=== PATIENT | male | born 1955 | race Caucasian/White ===

== ENCOUNTER 2019-04-04 17:48 | Inpatient (IN) | payer MEDICARE, OTHER ==
[~2019-04-04] VITALS: Ht 182.9 cm; Wt 113.4 kg
[2019-04-04] MEDS ORDERED: LORAZEPAM 0.5 MG TABLET PO PRN (23:00)
[2019-04-04] MEDS ORDERED: MAG HYDROX/AL HYDROX/SIMETH 30 ML UDC PO PRN (23:00)
[2019-04-04] MEDS ORDERED: ACETAMINOPHEN 325 MG TABLET PO PRN (23:00)
[2019-04-04] MEDS ORDERED: BLOOD SUGAR DIAGNOSTIC 1 EACH STRIP IN ONE (23:00)
[2019-04-04] MEDS ORDERED: MAGNESIUM HYDROXIDE 30 ML UDC PO PRN (23:00)
[2019-04-05] MEDS ORDERED: AMLO10TA7 PO (01:27)
[2019-04-05] MEDS ORDERED: TIOT18CA3 INH (01:27)
[2019-04-05] MEDS ORDERED: ATOR40TA PO (01:27)
[2019-04-05] MEDS ORDERED: ALBU8.5H8 INH (01:27)
[2019-04-05] MEDS ORDERED: QUET200T PO (01:27)
[2019-04-05] MEDS ORDERED: BENZ2AMP3 IJ (01:27)
[2019-04-05] MEDS ORDERED: CLON1TAB12 PO (01:27)
[2019-04-05] MEDS ORDERED: METO25TA4 PO (01:27)
[2019-04-05] MEDS ORDERED: OLAN10TA3 PO (01:27)
[2019-04-05] MEDS ORDERED: BUDE10.2 INH (01:27)
[2019-04-05] MEDS ORDERED: MOME17SP NS (01:27)
[2019-04-05] MEDS ORDERED: CHOL200026 PO (01:27)
[2019-04-05] MEDS ORDERED: IBUP-1957 PO (01:27)
[2019-04-05] MEDS ORDERED: MOME13HF2 INH (01:27)
[2019-04-05] MEDS ORDERED: CEPH500C2 PO (01:27)
[2019-04-05] MEDS ORDERED: DOCU100C36 PO (01:27)
[2019-04-05] MEDS ORDERED: CLOZ100T32 PO (01:27)
[2019-04-05 02:55] VITALS: BP 153/75
[2019-04-05] MEDS ORDERED: VANCOMYCIN 1 GM in IV NS 0.9% 250 ML IV SCH (03:00)
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
[2019-04-05] MEDS ORDERED: AMLODIPINE BESYLATE 10 MG TABLET PO PRN (04:30)
[2019-04-05] MEDS ORDERED: ALBUTEROL SULFATE INH 18 GM HFA.AER.AD NEB PRN (04:30)
--- NOTE | 2019-04-05 04:35 | NUR ---
PT PRESCRIBED IV VANCOMYCIN, ON-CALL DR AT [facility], AWAITING DRS CALL TO REPORT ADRIANA DOES NOT ADMINISTER IV/FURTHER INSTRUCTION.
--- NOTE | 2019-04-05 06:11 | NUR ---
NO RESPONSE FROM [facility] ON-CALL DR ABOUT THE PRESCRIBED IV VANCOMYCIN. WILL ENDORSE TO ON-COMING AM SHIFT TO FOLLOW UP WITH DR LUU.
--- NOTE | 2019-04-05 06:39 | NUR ---
Spoke to HAMMAD Browning that we don't infuse Vancomycin here and she gave an order to d/c the order.
[2019-04-05 08:00] VITALS: BP 154/75
[2019-04-05 08:16] LABS: BASOPHILS # (AUTO) 0.1 /CMM (0.0-0.2); BASOPHILS % (AUTO) 1.1 % (0.0-2.0); EOSINOPHILS % (AUTO) 0.1 % (0.0-6.0); HEMATOCRIT 36 % (39-51); HEMOGLOBIN 11.5 g/dL (13.5-17.5); LYMPHOCYTES # (AUTO) 1.5 /CMM (0.8-4.8); LYMPHOCYTES % (AUTO) 22.4 % (20.0-44.0); MEAN CORPUSCULAR HGB CONC 32 g/dl (31.0-36.0); MEAN CORPUSCULAR VOLUME 83 fL (80-96); MONOCYTES # (AUTO) 0.5 /CMM (0.1-1.30); MONOCYTES % (AUTO) 7.6 % (2.0-12.0); NEUTROPHILS # (AUTO) 4.7 /CMM (1.8-8.9); NEUTROPHILS % (AUTO) 68.8 % (43.0-81.0); PLATELET COUNT (AUTO) 349 /CMM (150-450); WHITE BLOOD COUNT (AUTO) 6.9 K/uL (4.3-11.0)
[2019-04-05] MEDS ORDERED: MOMETASONE FUROATE NASAL SUSP 17 GM BOTTLE PRN (08:30)
[2019-04-05 08:34] LABS: ALBUMIN 2.7 g/dL (3.4-5.0); BILIRUBIN,TOTAL 0.5 mg/dL (0.2-1.0); CALCIUM, SERUM 8.7 mg/dL (8.5-10.1); CREATININE 1.1 mg/dL (0.6-1.3); PHOSPHORUS 3.6 mg/dL (2.5-4.9); TOTAL PROTEIN, SERUM 6.2 g/dL (6.4-8.2)
[2019-04-05 08:49] LABS: THYROID STIMULATING HORMONE 3.579 uIU/mL (0.358-3.74)
[2019-04-05] MEDS ORDERED: CEPHALEXIN MONOHYDRATE 500 MG CAPSULE PO SCH (09:00)
--- NOTE | 2019-04-05 09:10 | NUR ---
ENDORSED PT. TO BE CORMIER.
[2019-04-05] MEDS: IBUPROFEN 400 MG TABLET PO SCH ×2 (09:28→17:30)
[2019-04-05] MEDS: METOPROLOL SUCCINATE 25 MG TAB.SR.24H PO SCH (09:28)
[2019-04-05] MEDS: FLUTICASONE/VILANTEROL 1 EACH BLST.W.DEV IH SCH (09:35)
--- NOTE | 2019-04-05 09:37 | NUR ---
FAMILY CONTACT: TALYA contacted pts sister Kenyetta [phone] to discuss discharge planning and to receive collateral information. Sister informed SW that she is pts caregiver and wishes for pt to return to her home [address] [place] [address] where pt has been living for the past 10 years. Sister stated that pt was recently discharged from a psychiatric facility in [place] where he was at for 2 months. Sister also stated that pt was psychiatrically stable until 2 months ago when his Clozaril which he had been taking for 10 years was stopped due to him having a bowel obstruction that required medical attention. Sister stated that once pt was taken off Clozaril he declined rapidly and he had to be psychiatrically hospitalized. Sister informed SW that pt was on 300mg OAM and 400mg QPM of Clozaril a day and she wishes for him to get back on it so he can stabilize. Sister stated that pt responds really well to that medication and was stable while on it. Sister also stated that pt receives psychiatrist monthly psychiatric treatment from Dr. Piedad Espinoza [address] [facility] [address] P:[phone]. SW informed sister that she would inform psychiatrist Dr. Pizano about pts medication change.
--- NOTE | 2019-04-05 10:09 | NUR ---
OUTSIDE PSYCHIATRIST CONTACT: SW contacted Dr. Piedad Espinoza [address] [facility] [address] P:[phone] and spoke with Lizbeth and provided her with information regarding pts current 5150 hold and psychiatric hospitalization. Lizbeth stated that she will have pts medication nurse contact SW to coordinate follow up.
--- NOTE | 2019-04-05 10:45 | NUR ---
RN NOTE- DR DUQUE CAME TO SEE PT AND DC VANCOMYCIN AND STARTED KEFLEX 500 MG PO BID X 5 DAYS.
--- NOTE | 2019-04-05 10:52 | NUR ---
WOUND CARE CONSULT: PT PRESENTS CONTINENT AND INDEPENDENT WITH BED MOBILITY AND SOME REDNESS WITH EDEMA TO LEFT LOWER LEG, PRESENT ON ADMISSION. DEFER TO MD FOR CELLULITIS. RECOMMENDATIONS MADE FOR SKIN PROTECTION. DISCUSSED WITH NURSING STAFF. WILL SEE PRN.
--- NOTE | 2019-04-05 11:30 | NUR ---
RECEIVED PT. BACK UNDER MY CARE.
--- NOTE | 2019-04-05 11:43 | NUR ---
INITIAL DISCHARGE PLAN: Per Sister Kenyetta [phone] she wishes pt to return to her home [address], [place] [address]. TALYA will help form a safe and proper discharge in coordination with .
[2019-04-05] MEDS: CEPHALEXIN MONOHYDRATE 250 MG CAPSULE PO SCH ×2 (12:15→21:14)
[2019-04-05] MEDS ORDERED: CLOZAPINE 25 MG TABLET PO SCH (13:00)
[2019-04-05] MEDS ORDERED: ALBUTEROL FS 2.5 MG/0.5 ML VIAL.NEB NEB PRN (13:30)
[2019-04-05 16:00] VITALS: BP 147/77
--- NOTE | 2019-04-05 16:25 | NUR ---
GROUP NOTE: SW assessed pts ability to participate in group therapy on this present day discussing "reality testing." Pt unable to participate due to paranoia and psychosis, and actively hallucinating.
[2019-04-05] MEDS: ATORVASTATIN 40 MG TABLET PO SCH (17:31)
[2019-04-05] MEDS: CLOZAPINE 25 MG TABLET PO SCH (19:34)
[2019-04-05 20:30] VITALS: BP 166/77
[2019-04-05] MEDS: DOCUSATE SODIUM 100 MG CAPSULE PO SCH (21:15)
--- NOTE | 2019-04-05 22:00 | NUR ---
BP decreased to 127/57 at 2200 from 166/77 at 1999 after taking PRN Ativan
--- NOTE | 2019-04-06 02:06 | NUR ---
Refused to take Colace
[2019-04-06 08:00] VITALS: BP 138/76
[2019-04-06] MEDS ORDERED: CLOZAPINE 25 MG TABLET PO SCH (09:00)
[2019-04-06] MEDS: CEPHALEXIN MONOHYDRATE 250 MG CAPSULE PO SCH ×2 (10:24→17:28)
[2019-04-06] MEDS: IBUPROFEN 400 MG TABLET PO SCH ×2 (10:25→17:28)
[2019-04-06] MEDS: METOPROLOL SUCCINATE 25 MG TAB.SR.24H PO SCH (10:26)
[2019-04-06] MEDS: CLOZAPINE 25 MG TABLET PO SCH ×2 (10:27→17:28)
[2019-04-06] MEDS: FLUTICASONE/VILANTEROL 1 EACH BLST.W.DEV IH SCH (10:48)
[2019-04-06 16:00] VITALS: BP 133/76
--- NOTE | 2019-04-06 16:16 | NUR ---
Group Note: SW encouraged the pt to participate in group therapy on 04/06/19 at 2pm discussing social supports. Pt was unable to participate due to paranoia and psychosis, and actively hallucinating. Pt was deemed inappropriate for group at this time.
[2019-04-06] MEDS: ATORVASTATIN 40 MG TABLET PO SCH (17:28)
[2019-04-06 20:09] VITALS: BP 141/75
[2019-04-06] MEDS: DOCUSATE SODIUM 100 MG CAPSULE PO SCH (21:14)
[2019-04-07 08:00] VITALS: BP 152/95
[2019-04-07] MEDS: FLUTICASONE/VILANTEROL 1 EACH BLST.W.DEV IH SCH (08:20)
[2019-04-07] MEDS: IBUPROFEN 400 MG TABLET PO SCH ×2 (08:20→17:18)
[2019-04-07] MEDS: METOPROLOL SUCCINATE 25 MG TAB.SR.24H PO SCH (08:20)
[2019-04-07] MEDS: CEPHALEXIN MONOHYDRATE 250 MG CAPSULE PO SCH ×2 (08:20→17:18)
[2019-04-07] MEDS: CLOZAPINE 25 MG TABLET PO SCH ×2 (08:21→17:19)
--- NOTE | 2019-04-07 09:23 | NUR ---
PC HEARING NOTIFICATION: SW contacted pts sister Kenyetta [phone] to inform her of pts PC Hearing on this present day and also to confirm she will be able to provide transportation back home once pt is stable. Sister stated that she will coordinate transportation with SW once the time comes. TALYA also informed her that MD is slowly increasing pts Clozaril dosage and that pt is responding well to it.
[2019-04-07 16:00] VITALS: BP 134/79
[2019-04-07] MEDS: ATORVASTATIN 40 MG TABLET PO SCH (17:18)
[2019-04-07 20:34] VITALS: BP 112/69
[2019-04-07 20:40] VITALS: BP 139/76
[2019-04-07] MEDS: DOCUSATE SODIUM 100 MG CAPSULE PO SCH (20:56)
[2019-04-07] MEDS: TEMAZEPAM 7.5 MG CAPSULE PO PRN (20:57)
[2019-04-07 22:18] VITALS: BP 139/76
[2019-04-08 08:00] VITALS: BP 153/82
[2019-04-08] MEDS: FLUTICASONE/VILANTEROL 1 EACH BLST.W.DEV IH SCH (08:26)
[2019-04-08] MEDS: CLOZAPINE 25 MG TABLET PO SCH ×2 (08:26→17:04)
[2019-04-08] MEDS: CEPHALEXIN MONOHYDRATE 250 MG CAPSULE PO SCH ×2 (08:27→17:04)
[2019-04-08] MEDS: METOPROLOL SUCCINATE 25 MG TAB.SR.24H PO SCH (08:27)
[2019-04-08] MEDS: IBUPROFEN 400 MG TABLET PO SCH ×2 (08:27→17:04)
[2019-04-08 16:00] VITALS: BP 160/96
[2019-04-08] MEDS: ATORVASTATIN 40 MG TABLET PO SCH (17:04)
[2019-04-08 20:00] VITALS: BP 141/75
[2019-04-08 20:14] VITALS: BP 141/75
[2019-04-08] MEDS: TEMAZEPAM 7.5 MG CAPSULE PO PRN (21:21)
[2019-04-08] MEDS: DOCUSATE SODIUM 100 MG CAPSULE PO SCH (21:21)
[2019-04-09] MEDS: FLUTICASONE/VILANTEROL 1 EACH BLST.W.DEV IH SCH (07:59)
[2019-04-09 08:00] VITALS: BP 158/89
[2019-04-09] MEDS: CLOZAPINE 25 MG TABLET PO SCH ×2 (08:00→17:27)
[2019-04-09] MEDS: CEPHALEXIN MONOHYDRATE 250 MG CAPSULE PO SCH ×2 (08:00→17:27)
[2019-04-09] MEDS: IBUPROFEN 400 MG TABLET PO SCH ×2 (08:01→17:28)
[2019-04-09] MEDS: METOPROLOL SUCCINATE 25 MG TAB.SR.24H PO SCH (08:02)
[2019-04-09 16:00] VITALS: BP 158/90
[2019-04-09] MEDS: ATORVASTATIN 40 MG TABLET PO SCH (17:27)
[2019-04-09 20:33] VITALS: BP 145/76
[2019-04-09] MEDS: DOCUSATE SODIUM 100 MG CAPSULE PO SCH (21:18)
[2019-04-10 08:00] VITALS: BP 147/92
[2019-04-10] MEDS: CEPHALEXIN MONOHYDRATE 250 MG CAPSULE PO SCH ×2 (08:37→17:42)
[2019-04-10] MEDS: METOPROLOL SUCCINATE 25 MG TAB.SR.24H PO SCH (08:37)
[2019-04-10] MEDS: IBUPROFEN 400 MG TABLET PO SCH ×2 (08:38→17:42)
[2019-04-10] MEDS: CLOZAPINE 25 MG TABLET PO SCH ×2 (08:39→21:36)
[2019-04-10] MEDS: FLUTICASONE/VILANTEROL 1 EACH BLST.W.DEV IH SCH (08:40)
--- NOTE | 2019-04-10 15:45 | NUR ---
GROUP NOTE: SW encouraged pt to attend group on this present day discussing "discharge planning." Pt refused to attend stating his leg was stiff and he couldn't move. SW provided intervention and discussed pts hallucinations. Pt stated he is feeling better and not hearing voices.
[2019-04-10 15:51] VITALS: BP 151/94
[2019-04-10] MEDS: ATORVASTATIN 40 MG TABLET PO SCH (18:44)
[2019-04-10 20:14] VITALS: BP 140/80
[2019-04-10] MEDS: DOCUSATE SODIUM 100 MG CAPSULE PO SCH (21:36)
[2019-04-11 08:00] VITALS: BP 141/77
[2019-04-11] MEDS: FLUTICASONE/VILANTEROL 1 EACH BLST.W.DEV IH SCH (08:22)
[2019-04-11] MEDS: CLOZAPINE 25 MG TABLET PO SCH ×2 (08:22→21:11)
[2019-04-11] MEDS: METOPROLOL SUCCINATE 25 MG TAB.SR.24H PO SCH (08:23)
[2019-04-11] MEDS: IBUPROFEN 400 MG TABLET PO SCH ×2 (08:23→16:17)
--- NOTE | 2019-04-11 11:24 | NUR ---
FAMILY CONTACT: SW contacted pts sister Kenyetta [phone] to discuss pts anticipated discharge for 04/13/19. Sister stated that she feels pt is still not stable for discharge as she stated pt asked her to take him to a mental institution so they can "due away with him." Sister requested pts Clozaril be increased. SW stated that she would discuss her concern with pts MD. Sister agreed.
[2019-04-11 16:00] VITALS: BP 139/88
[2019-04-11] MEDS: ATORVASTATIN 40 MG TABLET PO SCH (17:15)
[2019-04-11 20:26] VITALS: BP 126/65
[2019-04-11] MEDS: DOCUSATE SODIUM 100 MG CAPSULE PO SCH (21:11)
[2019-04-12 08:00] VITALS: BP 145/68
[2019-04-12] MEDS: CLOZAPINE 25 MG TABLET PO SCH (08:34)
[2019-04-12] MEDS: IBUPROFEN 400 MG TABLET PO SCH ×2 (08:34→17:21)
[2019-04-12] MEDS: METOPROLOL SUCCINATE 25 MG TAB.SR.24H PO SCH (08:34)
[2019-04-12] MEDS: FLUTICASONE/VILANTEROL 1 EACH BLST.W.DEV IH SCH (08:36)
--- NOTE | 2019-04-12 12:07 | NUR ---
FAMILY CONTACT: SW received a call from pts sister Kenyetta [phone] stating pt refused to speak to her on this present day and also stated that pt is not ready to be discharged. SW stated that she would discuss her concerns with pts MD. Sister agreed.
[2019-04-12 12:23] LABS: BASOPHILS # (AUTO) 0.1 /CMM (0.0-0.2); BASOPHILS % (AUTO) 1.1 % (0.0-2.0); EOSINOPHILS % (AUTO) 0.1 % (0.0-6.0); HEMATOCRIT 38 % (39-51); HEMOGLOBIN 12.7 g/dL (13.5-17.5); LYMPHOCYTES # (AUTO) 1.4 /CMM (0.8-4.8); LYMPHOCYTES % (AUTO) 23.2 % (20.0-44.0); MEAN CORPUSCULAR HGB CONC 33 g/dl (31.0-36.0); MEAN CORPUSCULAR VOLUME 83 fL (80-96); MONOCYTES # (AUTO) 0.4 /CMM (0.1-1.30); MONOCYTES % (AUTO) 7.5 % (2.0-12.0); NEUTROPHILS # (AUTO) 4.1 /CMM (1.8-8.9); NEUTROPHILS % (AUTO) 68.1 % (43.0-81.0); PLATELET COUNT (AUTO) 259 /CMM (150-450); RED BLOOD CELL COUNT(AUTO) 4.64 MIL/uL (4.5-6.0)
[2019-04-12 16:00] VITALS: BP 143/88
[2019-04-12] MEDS: ATORVASTATIN 40 MG TABLET PO SCH (17:21)
[2019-04-12] MEDS: CLOZAPINE 100 MG TABLET PO SCH (18:21)
[2019-04-12 20:17] VITALS: BP 148/76
[2019-04-12] MEDS: DOCUSATE SODIUM 100 MG CAPSULE PO SCH (21:41)
[2019-04-13] MEDS: CLOZAPINE 100 MG TABLET PO SCH ×2 (06:41→17:06)
--- NOTE | 2019-04-13 06:45 | NUR ---
training and development officer closing notes pt awake and alert calmed and interact appropriately at this time. slept well and stable andrew the night. all due meds given and all needs met. kept him warm and comfortable at all times. will endorse to am nurse for continuity of care.
[2019-04-13 08:00] VITALS: BP 153/85
[2019-04-13] MEDS: FLUTICASONE/VILANTEROL 1 EACH BLST.W.DEV IH SCH (08:26)
[2019-04-13] MEDS: METOPROLOL SUCCINATE 25 MG TAB.SR.24H PO SCH (08:27)
[2019-04-13] MEDS: IBUPROFEN 400 MG TABLET PO SCH ×2 (08:33→17:06)
[2019-04-13] MEDS: FLUOXETINE HCL 20 MG CAPSULE PO SCH (08:33)
--- NOTE | 2019-04-13 08:45 | NUR ---
INDIVIDUAL MEETING: SW met with pt to discuss his discharge plan, per pt he states he does not want to return to his sisters house and requested SNF placement. SW will coordinate discharge to a SNF and begin referring pt.
--- NOTE | 2019-04-13 09:16 | NUR ---
SNF REFERRAL: SW faxed SNF referral to Flo wedding coordinator at [facility] ([facility]) [address] [facility] [place] [address] P:[phone] F: [phone] and [facility] ([facility]) located at [address] [place] [id number] F: [phone] for review.
--- NOTE | 2019-04-13 10:18 | NUR ---
SNF: SW received a call from Flo log operations coordinator at [facility] ([facility]) [address] [place] [address] P:[phone] stating pt has been accepted to the facility.
--- NOTE | 2019-04-13 12:52 | NUR ---
COLLATERAL CONTACT: TALYA received a call from Bessy, child care centre manager at [address] [facility] [address] P:[phone] requesting discharge information. TALYA informed her that there is no current discharge date and also informed her that pt is refusing to return to his sisters house and has requested SNF placement. TALYA will contact Bessy once discharge has been ordered. Bessy agreed with discharge plan.
[2019-04-13 16:00] VITALS: BP 138/81
[2019-04-13] MEDS: ATORVASTATIN 40 MG TABLET PO SCH (17:06)
[2019-04-13 20:36] VITALS: BP 153/86
[2019-04-13] MEDS: DOCUSATE SODIUM 100 MG CAPSULE PO SCH (21:13)
[2019-04-13 21:25] VITALS: BP 136/64
--- NOTE | 2019-04-13 23:00 | NUR ---
GPS RN NOTE, RECEIVED PATIENT AWAKE AND IN BED, NO S/S OR COMPLAINTS OF PAIN AT THIS TIME. PATIENT IS DISPLAYING NO S/S OF APPARENT DISTRESS AT THIS TIME. PATIENT BREATHING IS UNLABORED WITH EQUAL RISE AND FALL OF THE CHEST. PATIENT IS ALERT AND ORIENTED X 2-3 ON ROOM AIR WITH A SPO2 99%. PATIENT COMPLAINT WITH MEDICATION, CALM, COOPERATIVE, DISORGANIZED AT TIMES, PASSIVE, AND NEEDS REORIENTATION. PATIENT DENIES SUICIDE AND HOMICIDAL IDEATIONS AT THIS TIME. PATIENT ASSISTED WITH TURNING AND REPOSITIONING Q2HR AND PRN FOR COMFORT AND CIRCULATION. PATIENT HAS NO NEEDS AT THIS TIME. PATIENT EDUCATED ON THE USE OF THE CALL CANTU. PATIENT BED SIDE RAILS UP X2 FOR SAFETY, BED IS LOCKED AND LOW WILL CONTINUE TO MONITOR AND MAINTAIN SAFETY.
[2019-04-14] MEDS: CLOZAPINE 100 MG TABLET PO SCH ×2 (05:47→17:46)
[2019-04-14 08:00] VITALS: BP 154/89
[2019-04-14] MEDS: FLUOXETINE HCL 20 MG CAPSULE PO SCH (08:04)
[2019-04-14] MEDS: IBUPROFEN 400 MG TABLET PO SCH ×2 (08:04→17:46)
[2019-04-14] MEDS: METOPROLOL SUCCINATE 25 MG TAB.SR.24H PO SCH (08:04)
[2019-04-14] MEDS: FLUTICASONE/VILANTEROL 1 EACH BLST.W.DEV IH SCH (08:31)
[2019-04-14 16:00] VITALS: BP 153/80
[2019-04-14] MEDS: ATORVASTATIN 40 MG TABLET PO SCH (17:46)
[2019-04-14] MEDS: DOCUSATE SODIUM 100 MG CAPSULE PO SCH (21:01)
[2019-04-14 21:03] VITALS: BP 140/65
[2019-04-15] MEDS: CLOZAPINE 100 MG TABLET PO SCH (05:00)
[2019-04-15 08:00] VITALS: BP 155/79
[2019-04-15] MEDS: METOPROLOL SUCCINATE 25 MG TAB.SR.24H PO SCH (08:44)
[2019-04-15] MEDS: FLUOXETINE HCL 20 MG CAPSULE PO SCH (08:44)
[2019-04-15] MEDS: FLUTICASONE/VILANTEROL 1 EACH BLST.W.DEV IH SCH (08:45)
[2019-04-15] MEDS: IBUPROFEN 400 MG TABLET PO SCH ×2 (08:47→16:18)
[2019-04-15 16:00] VITALS: BP 149/87
[2019-04-15] MEDS: ATORVASTATIN 40 MG TABLET PO SCH (16:18)
[2019-04-15] MEDS: CLOZAPINE 25 MG TABLET PO SCH (16:19)
[2019-04-15 20:12] VITALS: BP 120/58
[2019-04-15] MEDS: DOCUSATE SODIUM 100 MG CAPSULE PO SCH (21:20)
[2019-04-16] MEDS: CLOZAPINE 25 MG TABLET PO SCH ×3 (03:29→17:12)
[2019-04-16 08:00] VITALS: BP 115/70
[2019-04-16] MEDS: FLUTICASONE/VILANTEROL 1 EACH BLST.W.DEV IH SCH (09:09)
[2019-04-16] MEDS: FLUOXETINE HCL 20 MG CAPSULE PO SCH (09:10)
[2019-04-16] MEDS: IBUPROFEN 400 MG TABLET PO SCH ×3 (09:10→17:13)
[2019-04-16] MEDS: METOPROLOL SUCCINATE 25 MG TAB.SR.24H PO SCH (09:10)
[2019-04-16 16:00] VITALS: BP 144/76
[2019-04-16] MEDS: ATORVASTATIN 40 MG TABLET PO SCH (18:05)
[2019-04-16 20:05] VITALS: BP 130/58
[2019-04-16] MEDS: DOCUSATE SODIUM 100 MG CAPSULE PO SCH (21:29)
[2019-04-17] MEDS: CLOZAPINE 25 MG TABLET PO SCH ×2 (03:03→15:55)
--- NOTE | 2019-04-17 06:25 | NUR ---
RN CLOSING NOTES PATIENT IN BED ALERT AND ORIENTED X 2-3. VERBALLY RESPONSIVE AND ABLE TO FOLLOW DIRECTIONS. BREATHING REGULAR AND UNLABORED ON ROOM AIR. SLEPT FOR ABOUT 7-9HRS LAST NIGHT. NO EPISODE OF AGITATION OR AGGRESSIVE BEHAVIOR NOTED THE WHOLE SHIFT. REMAINED CALM AND COOPERATIVE. COMPLIANT WITH HIS MEDICATIONS. BED LOW AND LOCKED ON FLAT POSITION. WILL ENDORSE TO MORNING SHIFT FOR MARY.
[2019-04-17 08:00] VITALS: BP 123/61
[2019-04-17] MEDS: FLUOXETINE HCL 20 MG CAPSULE PO SCH (09:42)
[2019-04-17] MEDS: METOPROLOL SUCCINATE 25 MG TAB.SR.24H PO SCH (09:42)
[2019-04-17] MEDS: FLUTICASONE/VILANTEROL 1 EACH BLST.W.DEV IH SCH (09:43)
--- NOTE | 2019-04-17 15:30 | NUR ---
Group Note: SW went to patient's room to invite patient to attend today's support group at 1:00pm regarding holiday sensory activity being held in the activities room. Patient presented laying on a chair next to their bed stating, "I have a swollen leg". SW encouraged the pt. to attend and just sit in. However, the pt. refused.
[2019-04-17 16:00] VITALS: BP 134/85
[2019-04-17] MEDS: ATORVASTATIN 40 MG TABLET PO SCH (17:41)
[2019-04-17] MEDS: IBUPROFEN 400 MG TABLET PO SCH (17:41)
[2019-04-17 20:25] VITALS: BP 126/58
[2019-04-17] MEDS: DOCUSATE SODIUM 100 MG CAPSULE PO SCH (21:30)
[2019-04-17] MEDS: TEMAZEPAM 7.5 MG CAPSULE PO PRN (21:31)
[2019-04-18 08:00] VITALS: BP_SYST 104; BP_SYST 154; BP_DIAS 56; BP_DIAS 75
[2019-04-18] MEDS: FLUTICASONE/VILANTEROL 1 EACH BLST.W.DEV IH SCH (09:31)
[2019-04-18] MEDS: METOPROLOL SUCCINATE 25 MG TAB.SR.24H PO SCH (09:32)
[2019-04-18] MEDS: FLUOXETINE HCL 20 MG CAPSULE PO SCH (09:33)
[2019-04-18] MEDS: IBUPROFEN 400 MG TABLET PO SCH ×2 (09:33→17:00)
--- NOTE | 2019-04-18 14:08 | NUR ---
FAMILY CONTACT: SW contacted pts sister Kenyetta [phone] and left a voicemail informing her pt will be discharged tomorrow 04/19/19 to [facility].
[2019-04-18] MEDS: CLOZAPINE 25 MG TABLET PO SCH (15:00)
--- NOTE | 2019-04-18 15:06 | NUR ---
GROUP NOTE: SW encouraged pt to participate in group therapy discussing "discharge planning." Pt was present and stated that he did not know what arrangements were going to be made for him, SW stated that he will be discharged tomorrow and pt stated that he agreed with going to a SNF. Pt also stated that he did not want to return to his sisters house. Pt was cooperative and maintained good eye contact, pt was also calm with euthymic mood.
[2019-04-18 16:37] VITALS: BP 153/92
[2019-04-18] MEDS: ATORVASTATIN 40 MG TABLET PO SCH (18:16)
[2019-04-18 20:32] VITALS: BP 120/63
[2019-04-18 20:36] LABS: BASOPHILS # (AUTO) 0.1 /CMM (0.0-0.2); BASOPHILS % (AUTO) 1.1 % (0.0-2.0); EOSINOPHILS % (AUTO) 0.1 % (0.0-6.0); HEMATOCRIT 36 % (39-51); HEMOGLOBIN 11.8 g/dL (13.5-17.5); LYMPHOCYTES # (AUTO) 2.2 /CMM (0.8-4.8); LYMPHOCYTES % (AUTO) 29.2 % (20.0-44.0); MEAN CORPUSCULAR HGB CONC 33 g/dl (31.0-36.0); MEAN CORPUSCULAR VOLUME 83 fL (80-96); MONOCYTES # (AUTO) 0.6 /CMM (0.1-1.30); MONOCYTES % (AUTO) 7.7 % (2.0-12.0); NEUTROPHILS # (AUTO) 4.7 /CMM (1.8-8.9); NEUTROPHILS % (AUTO) 61.9 % (43.0-81.0); PLATELET COUNT (AUTO) 209 /CMM (150-450); RED BLOOD CELL COUNT(AUTO) 4.33 MIL/uL (4.5-6.0); WHITE BLOOD COUNT (AUTO) 7.5 K/uL (4.3-11.0)
[2019-04-18] MEDS: DOCUSATE SODIUM 100 MG CAPSULE PO SCH (21:04)
[2019-04-19] MEDS: CLOZAPINE 25 MG TABLET PO SCH (03:05)
[2019-04-19 08:00] VITALS: BP 149/72
[2019-04-19 08:39] VITALS: BP 149/72
[2019-04-19] MEDS: FLUOXETINE HCL 20 MG CAPSULE PO SCH (08:39)
[2019-04-19] MEDS: METOPROLOL SUCCINATE 25 MG TAB.SR.24H PO SCH (08:39)
[2019-04-19] MEDS: IBUPROFEN 400 MG TABLET PO SCH (08:40)
[2019-04-19] MEDS: FLUTICASONE/VILANTEROL 1 EACH BLST.W.DEV IH SCH (08:50)
--- NOTE | 2019-04-19 09:32 | NUR ---
DISCHARGE NOTE: Pt will be discharged at 1:00pm via [facility] to [facility] ([facility]) [address] [place] [address]. [place] [address] P: [phone]. Pts sister Kenyetta [phone] has been notified via voicemail. Pts mood is euthymic with congruent affect. Pt denied visual/auditory hallucinations and denied suicidal/homicidal ideation. Pt will be under the care of Psychiatrist: Dr. Nessa Pizano [address] [place] [address] and Manager Plan: Dr. Toledo Address: [address] [place] [id number] . The multidisciplinary exit care form was done, printed, signed, and given to the patient.
--- NOTE | 2019-04-19 13:00 | NUR ---
GPS RN NOTES 63Y/O MALE DISCHARGED TO [facility] IN STABLE CONDITION. COMPLIANT WITH MEDICATIONS, COOPERATIVE WITH TREATMENT PLANS. PATIENT DENIES SI/HI AND INSTRUCTED TO GO TO THE CLOSEST ER IF DEVELOPING SI/HI. BEHAVIOR IMPROVED, PSYCHIATRIC TX PLANS MET, MEDICAL TX PLANS DEFERRED FOR CONTINUAL MONITORING. EDUCATED PT ABOUT AFTER CARE PLAN AND COPY PROVIDED. RETURNED PERSONAL BELONGINGS TO PATIENT. MEDICATIONS RECONCILED WITH DR. LUU AND ALANNA HERRERA NP. REPORT GIVEN TO CAROL CAM AT [facility] FOR CONTINUITY OF CARE. PATIENT SIGNED ALL DISCHARGE PAPERWORK. SKIN ASSESSED, NO SKIN BREAKDOWN. SKIN ASSESSMENT PICTURES TAKEN AND DOCUMENTED IN CHART. PT LEFT THE UNIT AT 1250 VIA AMBULANCE.
== END 2019-04-19 12:50 | DRG 885 ==
LOC: GPS 22:01
PROVIDERS: ADMIT Psychiatry & Neurology Psychiatry; ATTEND Nurse Practitioner Acute Care
DX: F20.0 Paranoid schizophrenia (principal); L03.116 Cellulitis of left lower limb; F29 Unspecified psychosis not due to a substance or known physiological condition; I10 Essential (primary) hypertension; J44.9 Chronic obstructive pulmonary disease, unspecified; Z73.6 Limitation of activities due to disability; E66.9 Obesity, unspecified; Z68.33 Body mass index [BMI] 33.0-33.9, adult; Z91.5 Personal history of self-harm; R13.10 Dysphagia, unspecified; F32.9 Major depressive disorder, single episode, unspecified
CPT/HCPCS: 36415; 80053-TC; 80061-TC; 82962-TC; 83735-TC; 84100-TC; 84443-TC; 85025-TC; 87081-TC; 92611-TC; J3370; J7050

== ENCOUNTER 2019-11-21 18:32 | Inpatient (IN) | payer MEDICARE, OTHER ==
[~2019-11-21] VITALS: Ht 182.9 cm; Wt 99.1 kg
[~2019-11-21 18:32] MED LIST: ALBU8.5H8 INH; AMLO10TA7 PO; ATOR40TA PO; BENZ2AMP3 IJ; BUDE10.2 INH; CEPH500C2 PO; CHOL200026 PO; CLON1TAB12 PO; CLOZ100T32 PO; DOCU100C36 PO; IBUP-1957 PO; METO25TA4 PO; MOME13HF2 INH; MOME17SP NS; OLAN10TA3 PO; QUET200T PO; TIOT18CA3 INH
--- NOTE | 2019-11-21 18:39 | NUR ---
KEYANNA ALVARADO FROM [facility]. SENT FOR MEDICAL AND PSYCH EVAL. PER REPORT, C/O SI W/ NO SPECIFIC PLAN. UPON INITIAL ASSESSMENT, PT DENIES SI. NO C/O PAIN OR ANY DISCOMFORT. STABLE VITALS. AWAITING MD GOODRICH.
--- NOTE | 2019-11-21 18:40 | NUR ---
DR CHAMPION AT BEDSIDE FOR EVAL.
--- NOTE | 2019-11-21 18:52 | NUR ---
SPAR CAP BEVELER AT BEDSIDE FOR BLOOD DRAW.
[2019-11-21 18:57] LABS: BASOPHILS # (AUTO) 0.1 /CMM (0.0-0.2); BASOPHILS % (AUTO) 0.8 % (0.0-2.0); EOSINOPHILS % (AUTO) 0.1 % (0.0-6.0); HEMATOCRIT 40 % (39-51); LYMPHOCYTES # (AUTO) 1.8 /CMM (0.8-4.8); LYMPHOCYTES % (AUTO) 20.5 % (20.0-44.0); MEAN CORPUSCULAR HGB CONC 33 g/dl (31.0-36.0); MEAN CORPUSCULAR VOLUME 87 fL (80-96); MONOCYTES # (AUTO) 0.8 /CMM (0.1-1.30); MONOCYTES % (AUTO) 9.3 % (2.0-12.0); NEUTROPHILS % (AUTO) 69.3 % (43.0-81.0); PLATELET COUNT (AUTO) 167 /CMM (150-450); RED BLOOD CELL COUNT(AUTO) 4.61 MIL/uL (4.5-6.0); WHITE BLOOD COUNT (AUTO) 8.7 K/uL (4.3-11.0)
--- NOTE | 2019-11-21 18:58 | NUR ---
UNABLE TO PROVIDE URINE SAMPLE AT THIS TIME. URINAL GIVEN AT BEDSIDE.
[2019-11-21 19:07] LABS: CARBON DIOXIDE 31 mmol/L (21-32); CHLORIDE 102 mmol/L (98-107); CREATININE 1.4 mg/dL (0.6-1.3); GLUCOSE 112 mg/dL (74-106); POTASSIUM 3.8 mmol/L (3.5-5.1); SODIUM SERUM 138 mmol/L (136-145); UREA NITROGEN, BLOOD 30 mg/dL (7-18)
[2019-11-21 19:12] LABS: ALANINE AMINOTRANSFERASE 26 U/L (12-78); ALBUMIN 3.3 g/dL (3.4-5.0); ALCOHOL, BLOOD < 3 mg/dL (0-0); ALKALINE PHOSPHATASE 63 U/L (46-116); ASPARTATE AMINOTRANSFERASE 17 U/L (15-37); BILIRUBIN,DIRECT 0.1 mg/dL (0.0-0.2); BILIRUBIN,TOTAL 0.3 mg/dL (0.2-1.0); TOTAL PROTEIN, SERUM 6.7 g/dL (6.4-8.2)
[2019-11-21 19:14] LABS: ACETAMINOPHEN < 2 ug/ml (10-30); SALICYLATE < 2.8 mg/dL (2.8-20.0)
--- NOTE | 2019-11-21 19:17 | NUR ---
REPORT TO [facility] FOR MARY.
--- NOTE | 2019-11-21 19:23 | NUR ---
CALLED [employer] DEVELOPER [employer] FOR EVAL, ETA 2030
--- NOTE | 2019-11-21 19:23 | NUR ---
PT AMBULATED TO THE RESTROOM. PROVIDED URINE SAMPLE. URINE SAMPLE SENT TO LAB.
[2019-11-21 19:28] LABS: APPEARANCE,URINE Clear (CLEAR); BILIRUBIN,URINE Negative (NEGATIVE); BLOOD, URINE Small Ery/uL (NEGATIVE); COLOR,URINE Yellow (YELLOW); KETONES,URINE Negative (NEGATIVE); LEUKOCYTE ESTERASE ,URINE Negative (NEGATIVE); NITRITE, URINE Negative (NEGATIVE); PH,URINE 5.5 (5.0-8.0); PROTEIN,URINE Negative (NEGATIVE); UGLUCOSE Negative (NEGATIVE); UROBILINOGEN,URINE 0.2 EU/dL (0.2)
[2019-11-21 19:40] LABS: BACTERIA,URINE None seen /HPF (None Seen); SQUAMOUS EPITHELIAL CELL,UR Few /HPF (None Seen); WBC,URINE 0-2 /HPF (0-3)
--- NOTE | 2019-11-21 19:45 | NUR ---
FROM [facility].
--- NOTE | 2019-11-21 19:46 | NUR ---
MED LIST UPDATED.
[2019-11-21] MEDS ORDERED: IV NS 0.9% 1,000 ML IV ONE (20:00)
--- NOTE | 2019-11-21 20:04 | NUR ---
COVID SWAB SENT TO LAB
--- NOTE | 2019-11-21 20:57 | NUR ---
RESTING COMFORTABLY. VSS.
--- NOTE | 2019-11-21 21:51 | NUR ---
PALCED ON 5150 FOR GD AND DANGER TO SELF.
--- NOTE | 2019-11-21 22:18 | NUR ---
IV removed. Catheter intact and site benign. Pressure and 4x4 applied to site. No bleeding noted.
[2019-11-21] MEDS ORDERED: ALBUTEROL SULFATE INH 18 GM HFA.AER.AD IH PRN (23:00)
[2019-11-21] MEDS ORDERED: AMLODIPINE BESYLATE 10 MG TABLET PO PRN (23:00)
--- NOTE | 2019-11-21 23:09 | NUR ---
REOPORT GIVEN TO [facility] FOR MARY
[2019-11-21] MEDS ORDERED: MAG HYDROX/AL HYDROX/SIMETH 30 ML UDC PO PRN (23:30)
[2019-11-21] MEDS ORDERED: BLOOD SUGAR DIAGNOSTIC 1 EACH STRIP IN ONE (23:30)
[2019-11-21] MEDS ORDERED: MAGNESIUM HYDROXIDE 30 ML UDC PO PRN (23:30)
--- NOTE | 2019-11-21 23:30 | NUR ---
GPS PRESS WRITER NOTE RECEIVED PT FROM ER. PATIENT ARRIVED ON THIS UNIT AT 2325 VIA GURNEY. PATIENT ADMITTED ON A 5150 FOR DTS, GD. PER HOLD PATIENT REPORTS OF NO SI/HI/AVH AT THIS TIME. DENIES PAIN, NO DISTRESS WAS NOTED. PT WAS CALM, COOPERATIVE, BLUNT, FLAT AFFECT, ANXIOUS AND GUARDED PATIENT TALKING TO HIMSELF BUT DENIES AUDITORY, VISUAL HALLUCINATION. DISCUSSED WITH PT REASON FOR HOLD, NO QUESTIONS AT THIS TIME. SKIN ASSESSMENT WAS DONE, VITAL SIGNS STABLE, PATIENT ID BAND ON. DR. LUU AND DR. HERRERA WILL BE ON THE PATIENTS CARE WHILE HIS TIME HERE AT GPS. GUIDE TO PRESCRIPTIONS MEDICATION AND PATIENTS RIGHT HANDBOOK PROVIDED. PATIENT BELONGINGS WERE INVENTORIED AND CHECKED FOR CONTRABAND. PATIENT ORIENTED TO ROOM, FLOOR AND STAFF. PATIENT BED IS LOCKED AND IN LOWEST POSITION, WILL MONITOR Q15 MIN FOR SAFETY AND BEHAVIOR.
[2019-11-22 01:02] VITALS: BP 137/64
[2019-11-22 07:15] LABS: IRON, SERUM 64 ug/dl (50-175); TOTAL IRON BINDING CAPACITY 232 ug/dl (250-450)
[2019-11-22 07:16] LABS: CHOLESTEROL 121 mg/dL (<200); HDL CHOLESTEROL 51 mg/dL (40-60); LDL 65 mg/dL (0-99); TRIGLYCERIDES 55 mg/dL (30-150)
[2019-11-22 08:00] VITALS: BP 138/80
[2019-11-22] MEDS ORDERED: ALBUTEROL FS 2.5 MG/0.5 ML VIAL.NEB IH PRN (08:10)
[2019-11-22] MEDS: DOCUSATE SODIUM 100 MG CAPSULE PO SCH ×2 (08:35→16:41)
--- NOTE | 2019-11-22 08:59 | NUR ---
INDIVIDUAL INTERVENTION: dry yard worker met with patient to provide brief counseling. Pt appeared to be labile and hyperverbal. Pt was unable to state where he is and constantly states that he is "homeless". Pt appeared to be grandiose and stated that "he built the [employer]". This mortgage underwriter actively listened and provided emotional support.
--- NOTE | 2019-11-22 09:55 | NUR ---
Social Work Initial Discharge Note: Patient currently resides at [facility] [id number] [place] [id number]; ([phone]). ornamental bronze worker spoke with Flo ([phone]) and stated that patient is welcomed back upon discharge. This publications writer contacted patient's sister Kenyetta([phone]) but was unavailable and this publications writer left a voicemail. ornamental bronze worker will work with the MD to help coordinate proper discharge plan for patient.
--- NOTE | 2019-11-22 09:56 | NUR ---
Social Work Family Contact: maintenance and repair worker contacted patient's sister Kenyetta ([phone]) to gather collateral but was unavailable. This account underwriter left a voicemail to call back.
--- NOTE | 2019-11-22 10:28 | NUR ---
Social Work Family: This technical report writer spoke with Kenyetta ([phone]) stated that patient does not want to talk to her. Per sister, she stated he had lived with her for 10 years but no longer wants to live with her. She stated that he has been residing at [facility] and would want him to return back.
--- NOTE | 2019-11-22 14:14 | NUR ---
GROUP NOTE: Pt was asleep and not easily aroused by verbal cues.
[2019-11-22] MEDS ORDERED: METO25TA4 PO (15:19)
[2019-11-22] MEDS ORDERED: FLUT1BLS IH (15:19)
[2019-11-22] MEDS ORDERED: ATOR40TA PO (15:19)
[2019-11-22 16:00] VITALS: BP 156/86
--- NOTE | 2019-11-22 17:34 | NUR ---
GPS/RN-NOTES DARLENE RAE MADE AWARE OF NEW MEDICATIONS ADDED AND TO RECONCILE MEDICATIONS. RESPONDED WITH "OK". WILL ENDORSE TO NEXT SHIFT FOR FOLLOW UP AND CONTINUITY OF CARE.
[2019-11-22] MEDS ORDERED: IBUPROFEN 600 MG TABLET PO PRN (21:00)
[2019-11-22] MEDS: CLOZAPINE 100 MG TABLET PO SCH (22:00)
--- NOTE | 2019-11-22 22:19 | NUR ---
GPS RN NOTE: MEDICATION REFUSAL PT. REFUSED SCHEDULED 2200 CLOZARIL 300 MG PO. EXPLAINED RISKS AND BENEFITS. OFFERED 3X AND PT. STILL REFUSED. WILL CONTINUE TO MONITOR FOR SAFETY AND BEHAVIOR
[2019-11-22] MEDS: ACETAMINOPHEN 325 MG TABLET PO PRN (22:23)
--- NOTE | 2019-11-22 22:26 | NUR ---
GPS RN NOTE: PAIN PT. C/O OF GENERALIZED PAIN AND REQUESTED TYLENOL. ADMINISTERED TYLENOL 650 MG PO PRN ORDERED. WILL CONTINUE TO MONITOR FOR SAFETY AND BEHAVIOR
[2019-11-23 08:00] VITALS: BP 140/82
[2019-11-23] MEDS: AMLODIPINE BESYLATE 10 MG TABLET PO SCH (08:44)
[2019-11-23] MEDS: FLUOXETINE HCL 20 MG CAPSULE PO SCH (08:44)
[2019-11-23] MEDS: CLOZAPINE 100 MG TABLET PO SCH ×2 (08:44→20:59)
[2019-11-23] MEDS: DOCUSATE SODIUM 100 MG CAPSULE PO SCH ×2 (08:44→16:29)
--- NOTE | 2019-11-23 14:23 | NUR ---
GROUP NOTE: Group Topic was on how to manage stress. Patient was able to engage in group. Patient was agitated and kept talking about his sister and how his sister is not a good person. Patient shared that he does not have a good relationship with his sister and that he "does not like his sister". Patient is unpredictable. This adjusto writer operator comforted patient and provided emotional support.
[2019-11-23 16:00] VITALS: BP 116/67
[2019-11-23 19:43] LABS: APPEARANCE,URINE CLEAR (CLEAR); BILIRUBIN,URINE NEGATIVE (NEGATIVE); BLOOD, URINE MODERATE Ery/uL (NEGATIVE); COLOR,URINE YELLOW (YELLOW); KETONES,URINE NEGATIVE (NEGATIVE); LEUKOCYTE ESTERASE ,URINE TRACE (NEGATIVE); NITRITE, URINE NEGATIVE (NEGATIVE); PROTEIN,URINE NEGATIVE (NEGATIVE); UGLUCOSE NEGATIVE (NEGATIVE); UROBILINOGEN,URINE 0.2 EU/dL (0.2)
[2019-11-23 19:59] LABS: BACTERIA,URINE RARE /HPF (None Seen); SQUAMOUS EPITHELIAL CELL,UR 0-2 /HPF (None Seen)
[2019-11-23 20:15] LABS: EOSINOPHIL,URINE None Seen
[2019-11-23 20:53] VITALS: BP 125/63
[2019-11-23] MEDS: ACETAMINOPHEN 325 MG TABLET PO PRN (21:05)
[2019-11-24 00:31] LABS: CREATININE, URINE 91.5 MG/DL (30.0-125.0)
[2019-11-24 00:47] LABS: URINE TOTAL PROTEIN 20.7 mg/dL (0-11.9)
[2019-11-24 07:23] LABS: BASOPHILS % (AUTO) 0.5 % (0.0-2.0); EOSINOPHILS % (AUTO) 0.1 % (0.0-6.0); HEMATOCRIT 40 % (39-51); HEMOGLOBIN 13.3 g/dL (13.5-17.5); LYMPHOCYTES # (AUTO) 1.7 /CMM (0.8-4.8); LYMPHOCYTES % (AUTO) 20.3 % (20.0-44.0); MEAN CORPUSCULAR HGB CONC 33 g/dl (31.0-36.0); MEAN CORPUSCULAR VOLUME 85 fL (80-96); MONOCYTES # (AUTO) 0.6 /CMM (0.1-1.30); MONOCYTES % (AUTO) 7.6 % (2.0-12.0); NEUTROPHILS % (AUTO) 71.5 % (43.0-81.0); PLATELET COUNT (AUTO) 165 /CMM (150-450); RED BLOOD CELL COUNT(AUTO) 4.69 MIL/uL (4.5-6.0); WHITE BLOOD COUNT (AUTO) 8.4 K/uL (4.3-11.0)
[2019-11-24 08:00] VITALS: BP 132/58
[2019-11-24 08:07] LABS: ALBUMIN 3.2 g/dL (3.4-5.0); BILIRUBIN,TOTAL 0.5 mg/dL (0.2-1.0); CALCIUM, SERUM 8.8 mg/dL (8.5-10.1); MAGNESIUM 2.1 mg/dL (1.8-2.4); PHOSPHORUS 3.1 mg/dL (2.5-4.9); POTASSIUM 3.7 mmol/L (3.5-5.1); TOTAL PROTEIN, SERUM 6.2 g/dL (6.4-8.2)
[2019-11-24] MEDS: AMLODIPINE BESYLATE 10 MG TABLET PO SCH (08:29)
[2019-11-24] MEDS: DOCUSATE SODIUM 100 MG CAPSULE PO SCH ×2 (08:29→16:22)
[2019-11-24] MEDS: CLOZAPINE 100 MG TABLET PO SCH ×2 (08:29→21:49)
[2019-11-24] MEDS: FLUOXETINE HCL 20 MG CAPSULE PO SCH (08:29)
--- NOTE | 2019-11-24 12:04 | NUR ---
Social Work Note: This manual writer contacted patient's SNF [facility] and spoke with Flo who stated that patient does not have a conservatorship.
--- NOTE | 2019-11-24 15:26 | NUR ---
GROUP NOTE: grey roll worker invited pt to participate in group. Pt appeared to be withdrawn and quiet. He did not want to join and stated that he wants to rest.
[2019-11-24 16:00] VITALS: BP 122/73
[2019-11-24 19:49] VITALS: BP 103/73
[2019-11-24 19:56] VITALS: BP 103/73
--- NOTE | 2019-11-24 20:03 | NUR ---
PRN MILK OF MAGNESIA GIVEN PATIENT VERBALIZED THAT HE HAD SMALL BM NOW & FEELS HE IS CONSTIPATED & REQUESTED TO GET MILK OF MAGNESIA, OFFERED PRUNE JUICE TO THE PATIENT BUT HE REFUSED & ONLY WANTED TO TAKE MILK OF MAGNESIA. PRN MOM 30ML PO GIVEN. WILL MONITOR FOR EFFECTIVENESS.
[2019-11-24] MEDS: LORAZEPAM 0.5 MG TABLET PO PRN (20:25)
--- NOTE | 2019-11-24 20:26 | NUR ---
GPS RN NOTE: ANXIETY PATIENT VERBALIZED TO BE ANXIOUS & RESTLESS, TALKING TO HIMSELF, HYPERVERBAL, PACING IN THE HALLWAY. PRN ATIVAN 0.5 MG 1 TAB PO GIVEN ORDERED. WILL MONITOR CLOSELY FOR ANY CHANGES.
--- NOTE | 2019-11-24 21:15 | NUR ---
REFUSED SKIN ASSESSMENT PATIENT REFUSE SKIN ASSESSMENT X 3, EASILY ANXIOUS, HYPERVERBAL, PARANOID, TALKS TO HIMSELF & REFUSED SKIN ASSESSMENT DESPITE OF RISKS & BENEFITS EXPLANATIONS.
[2019-11-24 21:48] VITALS: BP 134/81
[2019-11-25 08:00] VITALS: BP 149/80
[2019-11-25 08:06] LABS: PTH, INTACT 49 pg/mL (15-65)
[2019-11-25] MEDS: CLOZAPINE 100 MG TABLET PO SCH ×2 (08:48→21:49)
[2019-11-25] MEDS: FLUOXETINE HCL 20 MG CAPSULE PO SCH (08:48)
[2019-11-25] MEDS: DOCUSATE SODIUM 100 MG CAPSULE PO SCH ×2 (08:48→17:28)
[2019-11-25] MEDS: AMLODIPINE BESYLATE 10 MG TABLET PO SCH (08:48)
[2019-11-25 16:00] VITALS: BP 136/72
[2019-11-25] MEDS: LORAZEPAM 0.5 MG TABLET PO PRN (17:50)
--- NOTE | 2019-11-25 17:51 | NUR ---
RN NOTE: ANXIETY PT C/O INCREASING ANXIETY. REQUESTING ATIVAN. ATIVAN 0.5MG PO PRN ADMINISTERED.
[2019-11-25 20:00] VITALS: BP 128/61
[2019-11-25 20:18] LABS: APPEARANCE,URINE CLEAR (CLEAR); BILIRUBIN,URINE NEGATIVE (NEGATIVE); BLOOD, URINE SMALL Ery/uL (NEGATIVE); COLOR,URINE YELLOW (YELLOW); KETONES,URINE NEGATIVE (NEGATIVE); LEUKOCYTE ESTERASE ,URINE NEGATIVE (NEGATIVE); NITRITE, URINE NEGATIVE (NEGATIVE); PH,URINE 6.5 (5.0-8.0); PROTEIN,URINE NEGATIVE (NEGATIVE); UGLUCOSE NEGATIVE (NEGATIVE); UROBILINOGEN,URINE 0.2 EU/dL (0.2)
[2019-11-25 20:28] VITALS: BP 128/61
[2019-11-25] MEDS: ACETAMINOPHEN 325 MG TABLET PO PRN (22:09)
--- NOTE | 2019-11-25 22:09 | NUR ---
GPS RN NOTE: PRN TYLENOL GIVEN PATIENT VERBALIZED C/O NECK PAIN 07/10 & REQUESTED TO GET TYLENOL. PRN TYLENOL 650 MG PO GIVEN ORDERED. WILL CONTINUE TO MONITOR.
[2019-11-26 07:08] LABS: BASOPHILS % (AUTO) 0.8 % (0.0-2.0); EOSINOPHILS % (AUTO) 0.1 % (0.0-6.0); HEMATOCRIT 40 % (39-51); HEMOGLOBIN 13.1 g/dL (13.5-17.5); LYMPHOCYTES # (AUTO) 1.8 /CMM (0.8-4.8); LYMPHOCYTES % (AUTO) 31.4 % (20.0-44.0); MEAN CORPUSCULAR HGB CONC 33 g/dl (31.0-36.0); MEAN CORPUSCULAR VOLUME 85 fL (80-96); MONOCYTES # (AUTO) 0.5 /CMM (0.1-1.30); NEUTROPHILS # (AUTO) 3.5 /CMM (1.8-8.9); NEUTROPHILS % (AUTO) 59.7 % (43.0-81.0); PLATELET COUNT (AUTO) 164 /CMM (150-450); RED BLOOD CELL COUNT(AUTO) 4.66 MIL/uL (4.5-6.0); WHITE BLOOD COUNT (AUTO) 5.8 K/uL (4.3-11.0)
[2019-11-26 08:00] VITALS: BP 111/64
[2019-11-26] MEDS: FLUOXETINE HCL 20 MG CAPSULE PO SCH (09:19)
[2019-11-26] MEDS: DOCUSATE SODIUM 100 MG CAPSULE PO SCH ×2 (09:19→17:18)
[2019-11-26] MEDS: CLOZAPINE 100 MG TABLET PO SCH ×2 (09:20→21:43)
[2019-11-26] MEDS: AMLODIPINE BESYLATE 10 MG TABLET PO SCH (09:20)
[2019-11-26 16:00] VITALS: BP 127/67
[2019-11-26 20:00] VITALS: BP 125/65
[2019-11-26 20:11] VITALS: BP 90/46
[2019-11-27 08:00] VITALS: BP 143/75
[2019-11-27] MEDS: DOCUSATE SODIUM 100 MG CAPSULE PO SCH ×2 (08:15→17:13)
[2019-11-27] MEDS: FLUOXETINE HCL 20 MG CAPSULE PO SCH (08:16)
[2019-11-27] MEDS: CLOZAPINE 100 MG TABLET PO SCH (08:16)
[2019-11-27] MEDS: AMLODIPINE BESYLATE 10 MG TABLET PO SCH (08:16)
[2019-11-27 16:00] VITALS: BP 117/69
[2019-11-27 20:16] VITALS: BP 137/79
[2019-11-27] MEDS: LORAZEPAM 0.5 MG TABLET PO PRN (22:07)
--- NOTE | 2019-11-27 22:08 | NUR ---
GPS RN NOTES: ANXIOUS PT C/O OF FEELING ANXIOUS. PT REQUESTED ATIVAN. OFFERED ATIVAN 0.5MG PO PRN ORDERED. PT AGREED AND TOLERATED MEDICATION WELL. CONTINUE TO MONITOR
[2019-11-28 06:35] LABS: *SPE A/G RATIO 1.1 (0.7-1.7); *SPE ALPHA-1-GLOBULIN 0.2 g/dL (0.0-0.4); *SPE ALPHA-2-GLOBULIN 0.7 g/dL (0.4-1.0); *SPE BETA GLOBULIN 0.9 g/dL (0.7-1.3); *SPE GLOBULIN, TOTAL 2.7 g/dL (2.2-3.9); *SPE M-SPIKE Not Observed g/dL (Not Observed); *SPEGAMMA GLOBULIN 0.9 g/dL (0.4-1.8)
[2019-11-28 08:00] VITALS: BP 119/69
[2019-11-28] MEDS: CLOZAPINE 100 MG TABLET PO SCH ×2 (08:31→21:19)
[2019-11-28] MEDS: DOCUSATE SODIUM 100 MG CAPSULE PO SCH ×2 (08:31→17:22)
[2019-11-28] MEDS: FLUOXETINE HCL 20 MG CAPSULE PO SCH (08:31)
[2019-11-28] MEDS: AMLODIPINE BESYLATE 10 MG TABLET PO SCH (08:32)
[2019-11-28] MEDS: LORAZEPAM 0.5 MG TABLET PO PRN (14:44)
--- NOTE | 2019-11-28 14:49 | NUR ---
just medicated with ativan 0.5 mg po for anxiety.
--- NOTE | 2019-11-28 15:28 | NUR ---
GROUP NOTE: Group Topic: Depression SW provided active listening, supportive counseling, and explored alternate coping skills. Patient presents with disorganized thought process and rambles about different topics. Patient was able to share that he suffers from depression for along time in his life and has attempted suicide several times.
[2019-11-28 15:44] LABS: BASOPHILS % (AUTO) 0.6 % (0.0-2.0); EOSINOPHILS % (AUTO) 0.1 % (0.0-6.0); HEMATOCRIT 43 % (39-51); LYMPHOCYTES % (AUTO) 29.5 % (20.0-44.0); MEAN CORPUSCULAR HGB CONC 33 g/dl (31.0-36.0); MEAN CORPUSCULAR VOLUME 85 fL (80-96); MONOCYTES # (AUTO) 0.6 /CMM (0.1-1.30); MONOCYTES % (AUTO) 8.7 % (2.0-12.0); NEUTROPHILS # (AUTO) 4.1 /CMM (1.8-8.9); NEUTROPHILS % (AUTO) 61.1 % (43.0-81.0); PLATELET COUNT (AUTO) 188 /CMM (150-450); RED BLOOD CELL COUNT(AUTO) 5.01 MIL/uL (4.5-6.0); WHITE BLOOD COUNT (AUTO) 6.7 K/uL (4.3-11.0)
[2019-11-28 16:00] VITALS: BP 146/63
[2019-11-28 19:58] VITALS: BP 128/79
[2019-11-28] MEDS: TEMAZEPAM 7.5 MG CAPSULE PO PRN (21:38)
--- NOTE | 2019-11-28 21:40 | NUR ---
GPS RN NOTE: INSOMNIA PT. C/O UNABLE TO SLEEP. ADMINISTERED RESTORIL 7.5 MG PO PRN ORDERED. WILL CONTINUE TO MONITOR FOR SAFETY AND BEHAVIOR
[2019-11-29 08:00] VITALS: BP 125/66
[2019-11-29] MEDS: DOCUSATE SODIUM 100 MG CAPSULE PO SCH ×2 (08:28→17:00)
[2019-11-29] MEDS: FLUOXETINE HCL 20 MG CAPSULE PO SCH (08:29)
[2019-11-29] MEDS: CLOZAPINE 100 MG TABLET PO SCH ×2 (08:29→21:11)
[2019-11-29] MEDS: AMLODIPINE BESYLATE 10 MG TABLET PO SCH (08:29)
--- NOTE | 2019-11-29 15:46 | NUR ---
Group Note: SW encouraged the pt to attend group therapy on 11/29/19 on the topic of discharge planning. Pt refused to attend because he was feeling tired and the pt stated that he wanted to be discharged back to [facility]. SW stated that he will be able to go back as soon as the MD believes that the pt is stable.
[2019-11-29 16:00] VITALS: BP 138/82
[2019-11-29 19:40] VITALS: BP 167/82
[2019-11-29 19:58] VITALS: BP 148/84
[2019-11-29 22:05] VITALS: BP 140/78
[2019-11-29] MEDS: TEMAZEPAM 7.5 MG CAPSULE PO PRN (22:13)
--- NOTE | 2019-11-29 22:15 | NUR ---
GPS RN NOTES: INSOMNIA PT C/O OF UNABLE TO SLEEP. PT REQUESTED SLEEPING MEDICATION. CHECKED VITALS WNL. OFFERED RESTORIL 7.5 MG PO PRN ORDERED. NO SOB. BREATHING EVEN AND UNLABORED. PT TOLERATED MEDICATION WELL. CONTINUE TO MONITOR.
[2019-11-30 08:27] VITALS: BP 145/87
[2019-11-30] MEDS: DOCUSATE SODIUM 100 MG CAPSULE PO SCH ×2 (09:02→17:02)
[2019-11-30] MEDS: FLUOXETINE HCL 20 MG CAPSULE PO SCH (09:03)
[2019-11-30] MEDS: AMLODIPINE BESYLATE 10 MG TABLET PO SCH (09:03)
[2019-11-30] MEDS: CLOZAPINE 100 MG TABLET PO SCH ×2 (09:03→21:05)
--- NOTE | 2019-11-30 14:20 | NUR ---
GROUP NOTE: Topic: Adapting to our environment. transfer worker provided active listening, motivational interviewing, and reflected patient's thoughts and feelings. Patient presented to be fixated on his "leg grafts' and stated, "no one understand me". Patient rambled about not trusting any doctor's. SW attempted to redirect the patient however unsuccessful. Patient remain delusional and paranoid and unable to stay on group topic.
[2019-11-30 16:00] VITALS: BP 100/65
[2019-11-30 20:23] VITALS: BP 136/81
[2019-11-30] MEDS: TEMAZEPAM 7.5 MG CAPSULE PO PRN (22:16)
--- NOTE | 2019-11-30 22:17 | NUR ---
GPS RN NOTE: INSOMNIA PT. C/O UNABLE TO SLEEP. ADMINISTERED RESTORIL 7.5 MG PO PRN ORDERED. WILL CONTINUE TO MONITOR FOR SAFETY AND BEHAVIOR.
[2019-12-01 08:00] VITALS: BP 125/72
[2019-12-01] MEDS: DOCUSATE SODIUM 100 MG CAPSULE PO SCH ×2 (10:03→16:06)
[2019-12-01] MEDS: FLUOXETINE HCL 20 MG CAPSULE PO SCH (10:04)
[2019-12-01] MEDS: AMLODIPINE BESYLATE 10 MG TABLET PO SCH (10:04)
[2019-12-01] MEDS: CLOZAPINE 100 MG TABLET PO SCH ×2 (10:04→21:24)
--- NOTE | 2019-12-01 15:08 | NUR ---
GROUP NOTE: Topic: Learning coping skills. curb worker attempted to invite patient to participate in group. Patient was resting at this time and wanted to continue to remain in bed and sleep.
[2019-12-01 16:00] VITALS: BP 124/73
[2019-12-01 21:12] VITALS: BP 125/78
[2019-12-01] MEDS: TEMAZEPAM 7.5 MG CAPSULE PO PRN (22:28)
--- NOTE | 2019-12-01 22:29 | NUR ---
GPS RN NOTE: INSOMNIA PT. C/O UNABLE TO SLEEP. ADMINISTERED RESTORIL 7.5 MG PO PRN ORDERED. WILL CONTINUE TO MONITOR FOR SAFETY AND BEHAVIOR.
--- NOTE | 2019-12-02 07:18 | NUR ---
PS RN NOTE NO BEHAVIOR PROBLEMS NOTED. NO ACUTE DISTRESS NOTED. WILL CONTINUE TO MONITOR FOR SAFETY AND BEHAVIOR .
--- NOTE | 2019-12-02 07:20 | NUR ---
GPS RN NOTE NO BEHAVIOR PROBLEMS NOTED. NO ACUTE DISTRESS NOTED. WILL CONTINUE TO MONITOR FOR SAFETY AND BEHAVIOR .
[2019-12-02 08:00] VITALS: BP 138/77
[2019-12-02] MEDS: FLUOXETINE HCL 20 MG CAPSULE PO SCH (08:10)
[2019-12-02] MEDS: DOCUSATE SODIUM 100 MG CAPSULE PO SCH ×2 (08:10→16:48)
[2019-12-02] MEDS: CLOZAPINE 100 MG TABLET PO SCH ×2 (08:10→21:07)
[2019-12-02] MEDS: AMLODIPINE BESYLATE 10 MG TABLET PO SCH (08:10)
[2019-12-02 16:00] VITALS: BP 127/73
[2019-12-02 20:59] VITALS: BP 146/86
[2019-12-03 08:00] VITALS: BP 143/79
[2019-12-03] MEDS: DOCUSATE SODIUM 100 MG CAPSULE PO SCH ×2 (08:12→17:37)
[2019-12-03] MEDS: CLOZAPINE 100 MG TABLET PO SCH ×2 (08:12→21:13)
[2019-12-03] MEDS: FLUOXETINE HCL 20 MG CAPSULE PO SCH (08:12)
[2019-12-03] MEDS: AMLODIPINE BESYLATE 10 MG TABLET PO SCH (08:23)
[2019-12-03 15:53] VITALS: BP 115/67
[2019-12-03 19:58] VITALS: BP 138/77
--- NOTE | 2019-12-03 21:48 | NUR ---
GPS RN NOTES: REFUSED WEEKLY PICTURE SKIN ASSESSMENT PY REFUSED WEEKLY PICTURE AND SKIN ASSESSMENT. PT INCREASED AGITATION. EXPLAIN RISKS AND BENEFITS. PT STILL REFUSED. CONTINUE TO MONITOR
[2019-12-03 22:26] VITALS: BP 117/61
[2019-12-03] MEDS: TEMAZEPAM 7.5 MG CAPSULE PO PRN (22:30)
--- NOTE | 2019-12-03 22:37 | NUR ---
RN NOTES: INSOMNIA PT. C/O INSOMNIA VITALS TAKEN WNL. NO SOB. NO RESP DISTRESS. RESTORIL 7.5 MG PO PRN GIVEN PER PATIENT REQUEST. WILL CONTINUE TO MONITOR.
[2019-12-04 08:00] VITALS: BP 113/59
[2019-12-04] MEDS: AMLODIPINE BESYLATE 10 MG TABLET PO SCH (08:37)
[2019-12-04] MEDS: CLOZAPINE 100 MG TABLET PO SCH ×2 (08:38→21:12)
[2019-12-04] MEDS: FLUOXETINE HCL 20 MG CAPSULE PO SCH (08:38)
[2019-12-04] MEDS: DOCUSATE SODIUM 100 MG CAPSULE PO SCH ×2 (08:38→16:38)
--- NOTE | 2019-12-04 15:24 | NUR ---
Group Note: SW invited patient to participate in group therapy to discuss the topic of Problem Solving. Patient presents superficial and has poor insight into his mental illness. Patient rambles about somatic complaints and unrelated topics. SW attempts to redirect the patient, however patient brings the topic back to the same subjects continuously. SW provided active listening, redirection, and acknowledged patient's feelings and concerns.
[2019-12-04 16:00] VITALS: BP 140/83
[2019-12-04] MEDS: LORAZEPAM 0.5 MG TABLET PO PRN (16:38)
--- NOTE | 2019-12-04 16:38 | NUR ---
RN NOTE: ANXIETY PT C/O INCREASING ANXIETY. REQUESTING ATIVAN 0.5 MG PO. MEDICATED WITH ATIVAN PO PRN
[2019-12-04 19:58] VITALS: BP 130/80
[2019-12-04 20:00] VITALS: BP 130/80
--- NOTE | 2019-12-04 22:19 | NUR ---
GPS RN NOTE: NECK PAIN PATIENT VERBALIZED NECK PAIN 07/10, REQUESTED TO GET PAIN MEDICINE, OFFERED TYLENOL & MOTRIN ORDERED BUT PATIENT PREFERRED TO TAKE MOTRIN AT THIS TIME. PRN MOTRIN 600 MG 1 TAB PO GIVEN. WILL CONTINUE TO MONITOR FOR ANY CHANGES.
--- NOTE | 2019-12-05 06:47 | NUR ---
GPS RN CLOSING NOTE PATIENT SLEPT WELL AT NIGHT. NO CHANGE OF CONDITION NOTED. HAD SNACKS & PO FLUIDS TOLERATED. WILL ENDORSE TO AM RN FOR CONTINUITY OF CARE.
[2019-12-05 08:00] VITALS: BP 137/70
[2019-12-05 08:15] LABS: BASOPHILS # (AUTO) 0.1 /CMM (0.0-0.2); BASOPHILS % (AUTO) 0.7 % (0.0-2.0); EOSINOPHILS % (AUTO) 0.1 % (0.0-6.0); HEMATOCRIT 39 % (39-51); HEMOGLOBIN 13.1 g/dL (13.5-17.5); LYMPHOCYTES % (AUTO) 24.6 % (20.0-44.0); MEAN CORPUSCULAR HGB CONC 34 g/dl (31.0-36.0); MEAN CORPUSCULAR VOLUME 86 fL (80-96); MONOCYTES # (AUTO) 0.7 /CMM (0.1-1.30); MONOCYTES % (AUTO) 8.2 % (2.0-12.0); NEUTROPHILS # (AUTO) 5.3 /CMM (1.8-8.9); NEUTROPHILS % (AUTO) 66.4 % (43.0-81.0); PLATELET COUNT (AUTO) 173 /CMM (150-450); RED BLOOD CELL COUNT(AUTO) 4.55 MIL/uL (4.5-6.0)
[2019-12-05] MEDS: CLOZAPINE 100 MG TABLET PO SCH ×2 (08:23→22:23)
[2019-12-05] MEDS: DOCUSATE SODIUM 100 MG CAPSULE PO SCH ×2 (08:24→16:25)
[2019-12-05] MEDS: FLUOXETINE HCL 20 MG CAPSULE PO SCH (08:24)
[2019-12-05] MEDS: AMLODIPINE BESYLATE 10 MG TABLET PO SCH (08:24)
--- NOTE | 2019-12-05 15:49 | NUR ---
Group Note: SW encouraged pt to attend group therapy on 12/05/19 on the topic of discharge planning. Pt refused to attend as he was sleeping but he stated that he was excited to be discharged soon.
[2019-12-05 16:00] VITALS: BP 116/77
[2019-12-05 19:50] VITALS: BP 141/79
[2019-12-05] MEDS: TEMAZEPAM 7.5 MG CAPSULE PO PRN (23:05)
[2019-12-06 08:00] VITALS: BP 114/68
[2019-12-06] MEDS: AMLODIPINE BESYLATE 10 MG TABLET PO SCH (09:00)
[2019-12-06] MEDS: FLUOXETINE HCL 20 MG CAPSULE PO SCH (09:10)
[2019-12-06] MEDS: CLOZAPINE 100 MG TABLET PO SCH ×2 (09:10→21:26)
[2019-12-06] MEDS: DOCUSATE SODIUM 100 MG CAPSULE PO SCH ×2 (09:10→17:47)
--- NOTE | 2019-12-06 11:12 | NUR ---
Group Note: SW encouraged pt to participate in group on the topic of dealing with anxiety. Patient was asleep at that time and did not participate.
[2019-12-06 16:00] VITALS: BP 134/86
[2019-12-06 19:25] VITALS: BP 133/87
[2019-12-07 08:00] VITALS: BP 119/69
[2019-12-07] MEDS: DOCUSATE SODIUM 100 MG CAPSULE PO SCH (08:11)
[2019-12-07] MEDS: FLUOXETINE HCL 20 MG CAPSULE PO SCH (08:11)
[2019-12-07 08:12] VITALS: BP 119/69
[2019-12-07] MEDS: AMLODIPINE BESYLATE 10 MG TABLET PO SCH (08:12)
[2019-12-07] MEDS: CLOZAPINE 100 MG TABLET PO SCH (08:13)
--- NOTE | 2019-12-07 08:53 | NUR ---
DISCHARGE NOTE: Patient will be discharged to senior care facility, [place] [id number] ([phone]) via Ambulance transportation at 12:00pm today. Medical Office Clerk spoke with Flo, Senior [employer] Developer at [facility] ([phone]), and he confirmed that patient will be accepted at their facility today. Patients sisterKenyetta ([phone]) is aware and agreeable with discharge plans. Patient is alert and oriented x3-4. Patient is not able to plan for self-care at this time but is willing to accept care provided for him at the facility. Patient denies suicidal or homicidal ideation. Patient is aware and agreeable with discharge plans. Patient presents with appropriate mood and congruent affect. Patient will follow-up with Psychiatrist Dr. Pizano and Recreational Therapy Technician Dr. Toledo at [address] [address] ([phone]). The multidisciplinary exit care form was done, printed, signed, and given to the patient.
--- NOTE | 2019-12-07 13:14 | NUR ---
GPS/RN-NOTES PATIENT HAD A DISCHARGE ORDER FROM DR. LUU (PSYCHIATRIST) AND DR. STROUD( BAND SEWER) ALSO MADE AWARE WITH ORDERS. PATIENT WAS DISCHARGE TO [facility]. PATIENT DID NOT VERBALIZED SI/HI,DENIES VISUAL AUDITORY HALLUCINATIONS UPON DISCHARGE.REPORT WAS GIVEN TO HARIS ([facility] STAFF ) . PER TALYA CHO PATIENT'S SISTER NAOMI ([phone]) AWARE OF PATIENT DISCHARGE. PATIENT WAS BATTERY CONTAINER TESTER ALUMINUM BY AMBULANCE VIA GURNEY WITH TWO STAFF ASSIST.PATIENT LEFT THE UNIT IN STABLE CONDITION ALERT ORIENTED X3 WITH ALL BELONGINGS.DISCHARGE PACKET WAS GIVEN TO THE AMBULANCE STAFF.
== END 2019-12-07 13:10 | DRG 885 ==
LOC: ER 18:32 → GPS 22:09
PROVIDERS: ADMIT Psychiatry & Neurology Psychiatry; ATTEND Nurse Practitioner Acute Care
DX: F25.9 Schizoaffective disorder, unspecified (principal); N17.0 Acute kidney failure with tubular necrosis; N18.9 Chronic kidney disease, unspecified; E44.1 Mild protein-calorie malnutrition; D68.69 Other thrombophilia; R45.851 Suicidal ideations; J44.9 Chronic obstructive pulmonary disease, unspecified; Z91.5 Personal history of self-harm; E88.09 Other disorders of plasma-protein metabolism, not elsewhere classified; E66.9 Obesity, unspecified; Z68.29 Body mass index [BMI] 29.0-29.9, adult; D64.9 Anemia, unspecified; I12.9 Hypertensive chronic kidney disease with stage 1 through stage 4 chronic kidney disease, or unspecified chronic kidney disease
CPT/HCPCS: 36415; 80048-TC; 80053-TC; 80061-TC; 80076-TC; 80305; 81000-TC; 82550-TC; 82565-TC; 82570-TC; 82962-TC; 83540-TC; 83735-TC; 83970; 84100-TC; 84155; 84155-TC; 84165; 84300-TC; 85025-TC; 87081-TC; 87086-TC; G0480; J7030

== ENCOUNTER 2023-09-06 12:24 | Inpatient (IN) | payer MEDICARE, OTHER ==
[~2023-09-06] VITALS: Ht 182.9 cm; Wt 149.7 kg
[~2023-09-06 12:24] MED LIST changes: +AMLO-213 PO; -AMLO10TA7 PO; -BENZ2AMP3 IJ; -BUDE10.2 INH; -CEPH500C2 PO; -CHOL200026 PO; -CLON1TAB12 PO; +FLUT1BLS IH; -MOME13HF2 INH; -MOME17SP NS; +MUPI22OI7 MC; -OLAN10TA3 PO; -QUET200T PO; -TIOT18CA3 INH
[2023-09-06 13:40] LABS: BASOPHILS # (AUTO) 0.1 K/uL (0.0-0.2); BASOPHILS % (AUTO) 0.8 % (0.0-2.0); EOSINOPHILS % (AUTO) 0.3 % (0.0-6.0); HEMATOCRIT 45 % (39-51); HEMOGLOBIN 14.6 g/dL (13.5-17.5); LYMPHOCYTES # (AUTO) 1.9 K/uL (0.8-4.8); LYMPHOCYTES % (AUTO) 20.6 % (20.0-44.0); MEAN CORPUSCULAR HEMOGLOBIN 27 PG (26.0-33.0); MEAN CORPUSCULAR HGB CONC 33 g/dl (31.0-36.0); MEAN CORPUSCULAR VOLUME 84 fL (80-96); MONOCYTES # (AUTO) 0.7 K/uL (0.1-1.30); MONOCYTES % (AUTO) 7.3 % (2.0-12.0); NEUTROPHILS # (AUTO) 6.4 K/uL (1.8-8.9); PLATELET COUNT (AUTO) 179 K/uL (150-450); RED BLOOD CELL COUNT(AUTO) 5.32 MIL/uL (4.5-6.0); RED CELL DISTRIBUTION WIDTH 15.5 % (11.5-15.0)
[2023-09-06 13:42] LABS: CALCIUM, SERUM 8.7 mg/dL (8.5-10.1); CREATININE 1.1 mg/dL (0.6-1.3)
[2023-09-06] MEDS ORDERED: CLOZ200T PO (13:42)
[2023-09-06] MEDS ORDERED: POLY15DR31 EACHEYE (13:42)
[2023-09-06] MEDS ORDERED: MAG355OR18 PO (13:42)
[2023-09-06] MEDS ORDERED: ACET325T53 PO (13:42)
[2023-09-06] MEDS ORDERED: FLUO10CA26 PO (13:42)
[2023-09-06] MEDS ORDERED: CLOZ100T32 PO (13:42)
[2023-09-06] MEDS ORDERED: MAGN400O6 PO (13:42)
[2023-09-06] MEDS ORDERED: ASCO500T87 PO (13:42)
[2023-09-06] MEDS ORDERED: MELA10TA7 PO (13:42)
[2023-09-06] MEDS ORDERED: CHOL100043 PO (13:42)
[2023-09-06] MEDS ORDERED: MAG HYDROX/AL HYDROX/SIMETH 30 ML UDC PO PRN (14:00)
[2023-09-06] MEDS ORDERED: ONDANSETRON HCL/PF 4 MG/2 ML VIAL IVP PRN (14:00)
[2023-09-06] MEDS ORDERED: hydrALAZINE HCL IV 20 MG VIAL IV PRN (14:00)
[2023-09-06] MEDS ORDERED: MAGNESIUM HYDROXIDE 30 ML UDC ONE (14:44)
[2023-09-06] MEDS ORDERED: ACETAMINOPHEN 325 MG TABLET ONE (14:44)
[2023-09-06] MEDS: MAGNESIUM HYDROXIDE 30 ML UDC PO PRN (14:47)
[2023-09-06] MEDS: ACETAMINOPHEN 325 MG TABLET PO PRN (14:47)
[2023-09-06] MEDS: DOCUSATE SODIUM 100 MG CAPSULE PO SCH (17:55)
[2023-09-06] MEDS: ENOXAPARIN SODIUM 40 MG/0.4 ML DISP.SYRIN SQ SCH (17:56)
[2023-09-06 20:00] VITALS: BP_SYST 115; BP_DIAS 37; BP_DIAS 57; TEMP 97.7; O2SAT 95
[2023-09-06] MEDS: CLOZAPINE 100 MG TABLET PO SCH (21:35)
[2023-09-06] MEDS: CLOZAPINE 25 MG TABLET PO SCH (21:36)
[2023-09-07 07:43] LABS: BASOPHILS % (AUTO) 0.6 % (0.0-2.0); EOSINOPHILS % (AUTO) 0.1 % (0.0-6.0); HEMATOCRIT 41 % (39-51); HEMOGLOBIN 13.5 g/dL (13.5-17.5); LYMPHOCYTES # (AUTO) 2.1 K/uL (0.8-4.8); MEAN CORPUSCULAR HEMOGLOBIN 28 PG (26.0-33.0); MEAN CORPUSCULAR HGB CONC 33 g/dl (31.0-36.0); MEAN CORPUSCULAR VOLUME 84 fL (80-96); MONOCYTES # (AUTO) 0.6 K/uL (0.1-1.30); MONOCYTES % (AUTO) 7.7 % (2.0-12.0); NEUTROPHILS % (AUTO) 64.6 % (43.0-81.0); PLATELET COUNT (AUTO) 208 K/uL (150-450); RED BLOOD CELL COUNT(AUTO) 4.82 MIL/uL (4.5-6.0); RED CELL DISTRIBUTION WIDTH 15.3 % (11.5-15.0); WHITE BLOOD COUNT (AUTO) 7.8 K/uL (4.3-11.0)
[2023-09-07 08:00] VITALS: BP 147/67; TEMP 97.7; O2SAT 93
[2023-09-07] MEDS: AMLODIPINE BESYLATE 10 MG TABLET PO SCH (08:30)
[2023-09-07] MEDS: CLOZAPINE 100 MG TABLET PO SCH (08:31)
[2023-09-07] MEDS: CLOZAPINE 25 MG TABLET PO SCH (08:31)
[2023-09-07] MEDS: Fluoxetine 10 mg capsule PO SCH (08:31)
[2023-09-07 09:24] LABS: ALBUMIN 2.7 g/dL (3.4-5.0); BILIRUBIN,TOTAL 0.3 mg/dL (0.2-1.0); CREATININE 1.1 mg/dL (0.6-1.3); MAGNESIUM 2.3 mg/dL (1.8-2.4); PHOSPHORUS 3.1 mg/dL (2.5-4.9); POTASSIUM 3.8 mmol/L (3.5-5.1); TOTAL PROTEIN, SERUM 6.7 g/dL (6.4-8.2)
[2023-09-07] MEDS: MUPIROCIN OINT 2% 22 GM TUBE TP SCH (11:16)
[2023-09-07] MEDS: POLYETHYLENE GLYCOL 3350 17 GM POWD.PACK PO ONE (11:17)
[2023-09-07 16:00] VITALS: BP 156/88; TEMP 98; O2SAT 96
[2023-09-07 20:00] VITALS: BP 147/77; TEMP 98.1; O2SAT 97
[2023-09-08 08:00] VITALS: BP 152/78; TEMP 97.5; O2SAT 97
[2023-09-08 16:00] VITALS: BP 153/86; TEMP 97.9; O2SAT 96
[2023-09-08 20:00] VITALS: BP 117/47; TEMP 98.2; O2SAT 95
[2023-09-09 08:00] VITALS: BP 156/87; TEMP 97.7; O2SAT 95
[2023-09-09 08:48] VITALS: BP 156/87
== END 2023-09-09 14:58 | DRG 607 ==
LOC: ER 12:44 → MED 16:36
PROVIDERS: ADMIT Internal Medicine; ATTEND Nurse Practitioner Family
DX: R21 Rash and other nonspecific skin eruption (principal); L03.115 Cellulitis of right lower limb; Z68.41 Body mass index [BMI] 40.0-44.9, adult; L97.819 Non-pressure chronic ulcer of other part of right lower leg with unspecified severity; F20.0 Paranoid schizophrenia; E11.42 Type 2 diabetes mellitus with diabetic polyneuropathy; E66.01 Morbid (severe) obesity due to excess calories; E78.5 Hyperlipidemia, unspecified; Z79.899 Other long term (current) drug therapy; I10 Essential (primary) hypertension; J44.9 Chronic obstructive pulmonary disease, unspecified; D64.9 Anemia, unspecified; I83.018 Varicose veins of right lower extremity with ulcer other part of lower leg; F32.A Depression, unspecified
CPT/HCPCS: 36415; 80048-TC; 80053-TC; 83735-TC; 84100-TC; 85025-TC; 93970-TC; G0378; J1650